=== PATIENT | female | born 1965 | race Caucasian/White ===

== ENCOUNTER 2017-11-14 13:10 | Emergency (ER) | payer MEDICAID, OTHER ==
[~2017-11-14] VITALS: Ht 167.6 cm; Wt 146.1 kg
[2017-11-14 13:16] VITALS: BP_SYST 151
[2017-11-14] MEDS ORDERED: KETOROLAC TROMETHAMINE 60 MG/2 ML VIAL IM ONE (14:00)
[2017-11-14] MEDS ORDERED: IBUPROFEN 800 MG TABLET PO ONE (14:00)
[2017-11-14 15:09] VITALS: BP_SYST 140
== END 2017-11-14 15:09 | disposition home or self-care (01) ==
LOC: SED 13:10
DX: M79.671 Pain in right foot (principal); R03.0 Elevated blood-pressure reading, without diagnosis of hypertension; E66.01 Morbid (severe) obesity due to excess calories; Z68.43 Body mass index [BMI] 50.0-59.9, adult; Z88.1 Allergy status to other antibiotic agents; Z90.49 Acquired absence of other specified parts of digestive tract
CPT/HCPCS: 73630; 96372; 99284; J1885